=== PATIENT | female | born 1985 | race Caucasian/White ===

== ENCOUNTER 2017-08-19 18:34 | Emergency (ER) | payer SELFPAY ==
[~2017-08-19] VITALS: Ht 167.6 cm; Wt 70.5 kg
[2017-08-19 19:49] VITALS: BP 138/76
== END 2017-08-19 19:57 | disposition home or self-care (01) | DRG 566 ==
LOC: ED 18:34
DX: S66.126A Laceration of flexor muscle, fascia and tendon of right little finger at wrist and hand level, initial encounter (principal); S63.91XA Sprain of unspecified part of right wrist and hand, initial encounter; W18.30XA Fall on same level, unspecified, initial encounter; W26.0XXA Contact with knife, initial encounter; Y93.G1 Activity, food preparation and clean up; Y92.009 Unspecified place in unspecified non-institutional (private) residence as the place of occurrence of the external cause; R50.9 Fever, unspecified

== ENCOUNTER 2018-04-27 08:17 | Emergency (ER) | payer MEDICAID ==
[~2018-04-27] VITALS: Ht 167.6 cm; Wt 76.4 kg
[2018-04-27 09:35] LABS: HEMATOCRIT 42.4 % (37.0-47.0); HEMOGLOBIN 13.9 g/dl (12.0-16.0); IMMATURE GRANULOCYTES 0.3 % (0.0-5.0); MEAN CELL VOLUME 84.6 fL CALC (80.0-100.0); MEAN CORPUSCULAR HGB 27.7 pG CALC (26.0-32.0); MEAN CORPUSCULAR HGB CONC 32.8 g/L CALC (32.0-36.0); NEUT# 6.16 thou/uL (2.00-7.15); RED BLOOD COUNT 5.01 mill/uL (4.20-5.60); RED CELL DISTRI WIDTH 12.7 % (11.5-15.5)
[2018-04-27 09:39] LABS: URINE BILIRUBIN - DIPSTICK NEGATIVE (NEGATIVE); URINE BLOOD DIPSTICK NEGATIVE (NEGATIVE); URINE COLOR YELLOW; URINE GLUCOSE - DIPSTICK NEGATIVE (NEGATIVE); URINE KETONE NEGATIVE (NEGATIVE); URINE LEUK ESTERASE NEGATIVE (NEGATIVE); URINE NITRITE - DIPSTICK NEGATIVE (Negative); URINE PROTEIN - DIPSTICK NEGATIVE (NEG-TRACE); URINE SPECIFIC GRAVITY 1.015; URINE UROBILINOGEN - DIPSTICK 0.2 E.U./dL (0.2)
[2018-04-27 09:51] LABS: ALBUMIN 4.2 g/dL (3.2-5.0); ALKALINE PHOSPHATASE 92 u/l (38-126); ANION GAP 13 (6-22 (CALC)); BILIRUBIN, TOTAL 0.5 mg/dL (0.0-1.4); BUN 11 mg/dL (7-17); BUN/CREATININE RATIO 19 (12-20 (CALC)); CARBON DIOXIDE 26 mmol/l (22-30); CHLORIDE 106 mmol/l (95-108); CREATININE 0.6 mg/dL (0.5-1.0); GFR > 60 ML/MIN (>=60 (CALC)); GFR FOR AFR.AMER. > 60 ML/MIN (>=60 (CALC)); LIPASE 97 u/l (23-300); POTASSIUM 4.8 mmol/l (3.5-5.1); SGOT/AST 15 u/l (14-36); SODIUM 139 mmol/l (137-146); TOTAL PROTEIN 7.1 g/dL (6.3-8.2)
[2018-04-27 11:23] VITALS: BP 130/81
== END 2018-04-27 11:30 | disposition home or self-care (01) ==
LOC: ED 08:17
PROVIDERS: Family Medicine
DX: S39.011A Strain of muscle, fascia and tendon of abdomen, initial encounter (principal); R10.12 Left upper quadrant pain; R11.0 Nausea
CPT/HCPCS: Q9967